=== PATIENT | male | born 1970 | race Caucasian/White ===

== ENCOUNTER 2025-02-03 14:27 | Emergency (ER) | payer BC ==
[2025-02-03 15:21] LABS: BASOPHILS ABSOLUTE AUTO 0.1 K/mm3 (0.0-0.2); BASOPHILS PERCENT AUTO 0.4 % (0.0-1.0); EOSINOPHILS ABSOLUTE AUTO 1.6 K/mm3 (0.0-0.4); EOSINOPHILS PERCENT AUTO 13.5 % (0.0-6.0); IMMATURE GRAN ABSOLUTE AUTO 0.03 K/mm3 (0.00-0.05); IMMATURE GRAN PERCENT AUTO 0.3 % (0.0-0.4); LYMPHOCYTES ABSOLUTE AUTO 2.4 K/mm3 (1.0-4.8); LYMPHOCYTES PERCENT AUTO 19.8 % (24.0-44.0); MEAN PLATELET VOLUME 9.9 fl (9.4-12.4); MONOCYTES ABSOLUTE AUTO 0.6 K/mm3 (0.0-0.8); MONOCYTES PERCENT AUTO 4.9 % (0.0-8.0); NEUTROPHILS ABSOLUTE AUTO 7.3 K/mm3 (1.8-7.7); NEUTROPHILS PERCENT AUTO 61.1 % (41.0-71.0); NRBC ABSOLUTE 0.00 (0.00-0.02); NRBC PERCENT 0.0 % (0.0-0.2); PLATELET COUNT,PLT 235 K/mm3 (150-400); RED BLOOD CELL COUNT 5.80 M/mm3 (4.52-5.90); WHITE BLOOD CELL COUNT,WBC 11.97 K/mm3 (3.9-11.3)
[2025-02-03 15:33] LABS: A/G RATIO 1.2 (1-2); ALANINE AMINOTRANSFERASE,ALT 44.0 U/L (16-63); ASPARTATE AMNIOTRANSFERASE,AST 24.0 U/L (15-37); BILIRUBIN TOTAL 2.3 mg/dL (0.2-1.0); BLOOD UREA NITROGEN,BUN 20.0 mg/dL (7-18); CARBON DIOXIDE,CO2 22.0 mEq/L (21-32); CHLORIDE,CL 102.0 mEq/L (98-107); CREATINE KINASE,CK 83.0 U/L (39-308); CREATININE 1.1 mg/dL (0.7-1.3); EST CRCL DRUG DOSING (CG) 83.28 mL/min; ESTIMATED GFR 79.0 mL/min (>60); GLUCOSE RANDOM 130.0 mg/dL (70-99); PROTEIN TOTAL,TP 7.8 g/dl (6.4-8.2); SODIUM,NA 139.0 mEq/L (136-145)
[2025-02-03 15:34] LABS: POTASSIUM,K 4.0 mEq/L (3.5-5.1)
[2025-02-03] MEDS: Ondansetron 4 MG/2 ML SDV IVPUSH ONE ×2 (15:36)
[2025-02-03] MEDS: LORazepam 2 MG/ML SDV IVPUSH STA (15:36)
[2025-02-03] MEDS: Iopamidol 612 MG/ML 100 ML Bottle IVPUSH ONE (17:12)
[2025-02-03] MEDS: Sodium Chloride 0.9% 10 ML Syringe FLUSH ONE (17:12)
[2025-02-03] MEDS ORDERED: Naloxone 0.4 MG/ML SDV IVPUSH PRN (17:23)
[2025-02-03] MEDS: Levofloxacin/Dextrose 5%-Water 750 MG in Premix Bag 1 BAG IV ONE (22:42)
[2025-02-03] MEDS: metroNIDAZOLE/Normal Saline 500 MG in Premix Bag 1 BAG IV ONE (22:42)
[2025-02-03] MEDS: Ketorolac 30 MG/ML SDV IVPUSH ONE (22:57)
== END 2025-02-04 00:21 | disposition home or self-care (01) ==
LOC: JD.ED 14:27
DX: R10.84 Generalized abdominal pain (principal)
CPT/HCPCS: 36415; 74177; 76705; 80053; 82550; 83690; 83735; 85025; 96361; 96365; 96367; 96368; 96375; 99284; J1171; J1836; J1885; J1956; J2060; J2405; J2765; J3475; J7030; Q9967